=== PATIENT | male | born 1955 | race Caucasian/White ===

== ENCOUNTER → 2017-09-10 | Outpatient (CLI) | payer BC ==
--- NOTE | 2017-09-10 14:50 | Diagnostic Imaging Report ---
PROCEDURE:X-RAY RIGHT ANKLE, COMPLETE TECHNIQUE:AP, lateral, and oblique images of the right ankle obtained INDICATION:Pain COMPARISON:None. FINDINGS: Distal tibia and fibula appear intact. Small osseous excrescence from the medial malleolus. Ankle mortise is symmetric. There may be soft tissue swelling at the medial malleolus. The calcaneus is intact. The visualized portion of the midfoot and forefoot are unremarkable. CONCLUSION: No acute fracture or dislocation. Dictated by: Isabel Lai M.D. on 09/10/2017 at 14:50 Electronically approved by: Isabel Lai M.D. on 09/10/2017 at 14:50
== END ==
LOC: RAD 14:04
PROVIDERS: ATTEND Family Medicine
DX: M25.571 Pain in right ankle and joints of right foot (principal)

== ENCOUNTER → 2017-10-23 | Outpatient (CLI) | payer BC ==
--- NOTE | 2017-10-23 16:12 | Diagnostic Imaging Report ---
MRI of the right foot without contrast. MRI of the ankle without contrast. History: Foot pain. Ankle sprain. Pain worse with running. Decreased range of motion. Technique: Multiplanar multisequence MRI of the foot. Multiplanar multisequence MRI of the ankle. Comparison: None. Findings: Achilles tendon and plantar fascia: The Achilles tendon and plantar fascia are normal. Cartilage and bone: Negative for osteochondral lesion of the tibiotalar and subtalar joints. Negative for fracture, osteonecrosis, or dislocation. Mild scattered degenerative changes are seen. There is a degenerative cyst in the mid calcaneus. Mild degenerative changes are seen at the first metatarsal/cuneiform articulation with mild underlying bone marrow edema best seen on series 11 image 12. Mild degenerative changes are seen at the first metatarsophalangeal joint. Medial ankle: The deltoid ligament complex is intact. The medial flexor tendons are normal. There is a physiologic amount of fluid within the tendon sheath of FHL. Lateral ankle: The anterior talofibular, calcaneofibular, and posterior talofibular ligaments are intact. The syndesmotic ligaments are intact. The peroneal tendons are normal. Anterior ankle: The anterior extensor tendons are normal. Other findings: There is a small tibiotalar joint effusion mild synovitis. There is a 1.5 cm lobulated septated ganglion/synovial cyst at the dorsal aspect of the foot arising from the proximal first metatarsal/cuneiform articulation. This is best seen on series 11 image 9. 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 1.5 cm lobulated septated ganglion/synovial cyst at the dorsal aspect of the foot arising from the proximal first metatarsal/cuneiform articulation. Signed by: Dr. Gianni Martinez M.D. on 10/23/2017 4:08 PM
== END ==
LOC: MRI 14:16
PROVIDERS: ATTEND Family Medicine
DX: M25.571 Pain in right ankle and joints of right foot (principal); S93.491A Sprain of other ligament of right ankle, initial encounter